=== PATIENT | male | born 1945 | race Caucasian/White ===

== ENCOUNTER 2018-06-05 09:24 | Inpatient (IN) | payer MEDICARE, OTHER ==
[~2018-06-05] VITALS: Ht 167.6 cm; Wt 92.1 kg
[2018-06-05] MEDS ORDERED: ALBUTEROL/IPRATROPIUM 3 ML NEB NEB ONE ×2 (10:00→12:45)
[2018-06-05] MEDS ORDERED: MAGNESIUM SULFATE 2GM/50ML 50 ML IV ONE (10:00)
[2018-06-05] MEDS ORDERED: DEXAMETHASONE SOD PHOS 10 MG/1 ML VIAL IV ONE (10:00)
[2018-06-05 10:14] LABS: BASOPHILS # (AUTO) 0.1 (0.0-0.1); BASOPHILS % 0.7 % (0.0-1.0); EOSINOPHILS # (AUTO) 0.8 (0.0-0.4); EOSINOPHILS % 7.9 % (0.0-6.0); HEMATOCRIT 45.1 % (38.2-49.6); HEMOGLOBIN 15.3 g/dL (14.0-18.0); LYMPHOCYTES # (AUTO) 1.7 (1.0-3.2); MEAN CORPUSCULAR HEMOGLOBIN 32.3 pg (28-32); MEAN CORPUSCULAR HGB CONC 33.9 g/dL (31-35); MEAN CORPUSCULAR VOLUME 95.1 fL (81-99); MONOCYTES # (AUTO) 0.9 (0.2-0.8); MONOCYTES % 8.3 % (4.4-11.3); NEUTROPHILS # (AUTO) 7.1 (2.1-6.9); NEUTROPHILS % 66.7 % (38.7-80.0); PLATELET COUNT 183 x10e3/uL (140-360); RED BLOOD COUNT 4.74 x10e6/uL (4.3-5.7); RED CELL DISTRIBUTION WIDTH 13.3 % (11.7-14.4)
[2018-06-05 10:26] LABS: ALANINE AMINOTRANSFERASE 10 IU/L (0-55); ALBUMIN 3.9 g/dL (3.5-5.0); ALBUMIN/GLOBULIN RATIO 1.2 (0.8-2.0); ALKALINE PHOSPHATASE 50 IU/L (40-150); ANION GAP 14.2 mmol/L (8-16); BLOOD UREA NITROGEN 13 mg/dL (7-26); BUN/CREATININE RATIO 12 (6-25); CALCIUM 9.1 mg/dL (8.4-10.2); CARBON DIOXIDE 27 mmol/L (22-29); CHLORIDE 97 mmol/L (98-107); CREATININE, SERUM 1.06 mg/dL (0.72-1.25); EST GLOMERULAR FILTRATION RATE > 60 ML/MIN (60-); GLUCOSE 96 mg/dL (74-118); POTASSIUM 4.2 mmol/L (3.5-5.1); SODIUM 134 mmol/L (136-145)
[2018-06-05] MEDS ORDERED: SODIUM CHLORIDE FLUSH 10 ML SYR INJ PRN (13:45)
[2018-06-05] MEDS ORDERED: ASPIRIN 81 MG CHEW TAB PO ONE (13:45)
[2018-06-05] MEDS ORDERED: METHYLPREDNISOLONE SOD SUCC 40 MG/ML VIAL IV SCH (14:00)
--- NOTE | 2018-06-05 15:02 | Diagnostic Imaging Report ---
EXAMINATION: CHEST 2 VIEWS INDICATION: Shortness of breath. COPD COMPARISON: April 30, 2012 FINDINGS: TUBES and LINES: None. LUNGS: Chronic appearing changes in the lungs with hyperinflation. Likely minimal scarring/atelectasis at the lung bases. There is no evidence of pneumonia or pulmonary edema. PLEURA: No pleural effusion or pneumothorax. HEART AND MEDIASTINUM: The cardiomediastinal silhouette is unremarkable. BONES AND SOFT TISSUES: No acute osseous lesion. Soft tissues are unremarkable. UPPER ABDOMEN: No free air under the diaphragm. IMPRESSION: Chronic appearing changes in the lungs with hyperinflation. Likely minimal scarring/atelectasis at the lung bases. Signed by: Dr. Rosas Ballard M.D. on 06/05/2018 2:58 PM
[2018-06-05] MEDS: ALBUTEROL/IPRATROPIUM 3 ML NEB NEB SCH ×3 (15:32→23:27)
[2018-06-05 15:56] VITALS: BP 149/69
[2018-06-05 16:00] VITALS: BP 149/69
[2018-06-05] MEDS ORDERED: VITAMIN D400 UNIT PO (16:58)
[2018-06-05] MEDS ORDERED: DIVALPROEX SOD500 M1 PO (16:58)
[2018-06-05] MEDS ORDERED: BUPROPION HCL150 M2 PO (16:58)
[2018-06-05] MEDS ORDERED: LEVOTHYROXINE50 MCG PO (17:21)
[2018-06-05] MEDS ORDERED: COLACE100 MG PO (17:21)
[2018-06-05] MEDS ORDERED: HYDROXYZINE HCL25 MG PO (17:21)
[2018-06-05] MEDS ORDERED: OMEPRAZOLE40 MG PO (17:25)
[2018-06-05] MEDS ORDERED: LORATADINE10 MG PO (17:25)
[2018-06-05] MEDS ORDERED: SPIRIVA18 MCG INH (17:27)
[2018-06-05] MEDS ORDERED: TAMSULOSIN HCL0.4 MG PO (17:27)
[2018-06-05] MEDS ORDERED: FLUTICASONE PRO16 GM (17:31)
[2018-06-05] MEDS ORDERED: ALBUTEROL0.63 MG/3 (17:34)
[2018-06-05] MEDS ORDERED: ALBUTEROL0.63 MG/3 INH (17:36)
[2018-06-05] MEDS ORDERED: SIMVASTATIN20 MG PO (17:37)
[2018-06-05] MEDS: FAMOTIDINE 20 MG/2 ML VIAL IV SCH (17:54)
[2018-06-05] MEDS: CEFTRIAXONE SOD 1 GM VIAL IV SCH (17:54)
[2018-06-05] MEDS: DOCUSATE SODIUM 100 MG CAP PO SCH (17:54)
[2018-06-05] MEDS: DOXYCYCLINE HYCLATE TABLET 100 MG TAB PO SCH (17:56)
[2018-06-05 18:13] LABS: FREE THYROXINE INDEX 2.5463 (1.4-3.8); THYROID STIMULATING HORMONE 16.319 uIU/mL (0.350-4.940)
[2018-06-05 18:20] LABS: CREATINE KINASE 273 IU/L (30-200)
--- NOTE | 2018-06-05 19:07 | Consultation ---
DATE OF CONSULTATION: HISTORY: A [facility] 72-year-old gentleman admitted with shortness of breath. He has been short of breath for 15 years, increasingly over the last month, recently seen at the [facility], told to increase his supplemental oxygen, which he has been using for 5 years, history of end-stage COPD. He had thyroid surgery in his youth, age 19, partial thyroidectomy, and he has been on replacement. 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 He smoked second hand smoker as a child and then for 15 years in the [employer], 3 packs a day. FAMILY HISTORY: Positive for congestive heart failure. PAST SURGICAL HISTORY: He had a ruptured appendix treated in 2003. PAST MEDICAL HISTORY: He has a history of dyspnea, gastroesophageal reflux, degenerative joint disease, seasonal allergies, and hyperlipidemia. PHYSICAL EXAMINATION VITAL SIGNS: Temperature 97, pulse 93, respirations 18, blood pressure 140/96. GENERAL: He appears somewhat cushingoid though he denies taking regular steroids. HEAD: Normocephalic and atraumatic. EYES: Extraocular movements are intact. LUNGS: Markedly diminished breath sounds. HEART: Regular rhythm. ABDOMEN: Nontender. EXTREMITIES: Nonedematous. IMPRESSION: Acute exacerbation of chronic obstruction pulmonary disease, hyperlipidemia, benign prostatic hypertrophy, iatrogenic hypothyroidism, and mild hyponatremia. PLAN: Optimize bronchodilators. Monitor the dose of corticosteroids, check blood gases. Check ultrasound and KUB. Job#: [id number] ABDOUL
--- NOTE | 2018-06-05 19:31 | Diagnostic Imaging Report ---
EXAM: Abdominal Aorta Ultrasound INDICATION: \S\AAA COMPARISON: None. TECHNIQUE: Grayscale, color Doppler, and spectral waveform analysis of the abdominal aorta and common iliac arteries was performed. FINDINGS: Diameter (AP x Transverse) Proximal Aorta: 2.7 x 1.8 cm Mid Aorta: 2.1 x 2.9 cm Distal Aorta: 2.3 x 1.9 cm Aneurysm: None Calcifications: Mild atherosclerotic calcification of distal aorta. Doppler flow: Normal Waveforms: Normal IMPRESSION: No abdominal aortic aneurysm identified. Mildly ectatic mid abdominal aorta. Signed by: Dr. Kwesi Cavanaugh MD on 06/05/2018 7:27 PM
[2018-06-05] MEDS: FLUTICASONE PROPIONATE NASAL SPRAY NS SCH (19:33)
[2018-06-05 19:55] VITALS: BP 114/60
[2018-06-05 20:05] VITALS: BP 114/60
--- NOTE | 2018-06-05 20:19 | Diagnostic Imaging Report ---
EXAM: Abdomen 1 View INDICATION: \S\CONSTIPATION \S\[id number] \S\1940 COMPARISON: None FINDINGS: Limited study due to body habitus. Nonobstructive bowel gas pattern. No definite evidence of pneumoperitoneum. Moderate colonic stool burden. Degenerative changes of lower lumbar spine. IMPRESSION: 1. Very limited study due to body habitus. 2. Nonobstructive bowel gas pattern. 3. Moderate colonic stool burden, could represent constipation. Signed by: Dr. Kwesi Cavanaugh MD on 06/05/2018 8:15 PM
[2018-06-05] MEDS: METHYLPREDNISOLONE SOD SUCC 40 MG/ML VIAL IV SCH (20:51)
[2018-06-05] MEDS: SIMVASTATIN 20 MG TAB PO SCH (20:51)
[2018-06-05] MEDS: DIVALPROEX SODIUM 250 MG TAB...DR PO SCH (20:51)
[2018-06-05] MEDS: TAMSULOSIN HCL 0.4 MG CAP PO SCH (20:51)
[2018-06-05] MEDS: HEPARIN SOD (PORCINE) 5,000 UNIT/ML VIAL SC SCH (20:54)
[2018-06-05] MEDS: MAGNESIUM HYDROXIDE 30 ML UDC PO PRN (21:26)
[2018-06-06] VITALS (8 sets, daily range): BP systolic 96–130; BP diastolic 55–68
[2018-06-06] MEDS: DOXYCYCLINE HYCLATE TABLET 100 MG TAB PO SCH ×3 (02:00→17:44)
[2018-06-06 02:27] LABS: CREATINE KINASE 266 IU/L (30-200)
[2018-06-06] MEDS: ALBUTEROL/IPRATROPIUM 3 ML NEB NEB SCH ×6 (03:22→23:00)
[2018-06-06 05:25] LABS: BASOPHILS % 0.1 % (0.0-1.0); HEMATOCRIT 39.6 % (38.2-49.6); HEMOGLOBIN 13.5 g/dL (14.0-18.0); LYMPHOCYTES # (AUTO) 0.6 (1.0-3.2); LYMPHOCYTES % 8.1 % (18.0-39.1); MEAN CORPUSCULAR HEMOGLOBIN 32.2 pg (28-32); MEAN CORPUSCULAR HGB CONC 34.1 g/dL (31-35); MEAN CORPUSCULAR VOLUME 94.5 fL (81-99); MONOCYTES # (AUTO) 0.3 (0.2-0.8); MONOCYTES % 4.3 % (4.4-11.3); NEUTROPHILS # (AUTO) 6.3 (2.1-6.9); NEUTROPHILS % 87.1 % (38.7-80.0); PLATELET COUNT 186 x10e3/uL (140-360); RED BLOOD COUNT 4.19 x10e6/uL (4.3-5.7); RED CELL DISTRIBUTION WIDTH 13.3 % (11.7-14.4)
[2018-06-06 05:44] LABS: CALCIUM 8.6 mg/dL (8.4-10.2); CREATININE, SERUM 1.21 mg/dL (0.72-1.25)
[2018-06-06] MEDS ORDERED: LEVOTHYROXINE SODIUM 100 MCG TAB PO SCH (06:00)
[2018-06-06] MEDS ORDERED: OMEPRAZOLE 20 MG CAP PO SCH (07:30)
--- NOTE | 2018-06-06 07:41 | Diagnostic Imaging Report ---
CHEST SINGLE (PORTABLE), 06/06/2018 7:00 AM Technique: CHEST SINGLE (PORTABLE) Comparison: Previous day Clinical history: Shortness of breath Findings: See Impression Impression: 1. Stable cardiomediastinal silhouette. 2. Hyperinflation/emphysema with mild bibasilar opacity, possibly atelectasis or aspiration/infection in the acute context or scarring in the chronic setting. Attention on short-term follow-up upright PA and lateral to better assess chronicity. 3. No effusion or pneumothorax. Signed by: Dr Shabana Smith MD on 06/06/2018 6:33 AM
[2018-06-06] MEDS: PANTOPRAZOLE SOD 40 MG TABEC PO SCH (08:47)
[2018-06-06] MEDS: DIVALPROEX SODIUM 250 MG TAB...DR PO SCH ×2 (08:47→20:41)
[2018-06-06] MEDS: DOCUSATE SODIUM 100 MG CAP PO SCH ×2 (08:47→17:43)
[2018-06-06] MEDS: FAMOTIDINE 20 MG/2 ML VIAL IV SCH ×2 (08:47→17:43)
[2018-06-06] MEDS: FLUTICASONE PROPIONATE NASAL SPRAY NS SCH ×2 (08:47→17:43)
[2018-06-06] MEDS: LORATADINE 10 MG TAB PO SCH (08:47)
[2018-06-06] MEDS: METHYLPREDNISOLONE SOD SUCC 40 MG/ML VIAL IV SCH (08:47)
[2018-06-06] MEDS: BUPROPION HCL 150 MG TABCR PO SCH (08:47)
[2018-06-06] MEDS: HEPARIN SOD (PORCINE) 5,000 UNIT/ML VIAL SC SCH ×2 (08:49→20:45)
[2018-06-06 10:00] LABS: CREATINE KINASE 309 IU/L (30-200)
[2018-06-06] MEDS: BUDESONIDE/FORMOTEROL 160/4.5MCG INHALER INH SCH ×2 (11:35→19:00)
[2018-06-06] MEDS: TIOTROPIUM 18 MCG INH POWDER INH SCH (11:35)
[2018-06-06] MEDS: CEFTRIAXONE SOD 1 GM VIAL IV SCH (17:43)
[2018-06-06] MEDS: TAMSULOSIN HCL 0.4 MG CAP PO SCH (20:41)
[2018-06-06] MEDS: SIMVASTATIN 20 MG TAB PO SCH (20:41)
[2018-06-07] VITALS (8 sets, daily range): BP systolic 123–152; BP diastolic 58–73
[2018-06-07] MEDS: ALBUTEROL/IPRATROPIUM 3 ML NEB NEB SCH ×7 (03:35→23:00)
[2018-06-07] MEDS: LEVOTHYROXINE SODIUM 100 MCG TAB PO SCH (05:58)
[2018-06-07] MEDS: DOXYCYCLINE HYCLATE TABLET 100 MG TAB PO SCH ×2 (05:58→17:22)
[2018-06-07] MEDS: BUDESONIDE/FORMOTEROL 160/4.5MCG INHALER INH SCH ×2 (07:00→19:00)
[2018-06-07] MEDS: METHYLPREDNISOLONE SOD SUCC 40 MG/ML VIAL IV SCH (07:55)
[2018-06-07] MEDS: PANTOPRAZOLE SOD 40 MG TABEC PO SCH (07:56)
[2018-06-07] MEDS: FAMOTIDINE 20 MG/2 ML VIAL IV SCH ×2 (08:13→17:01)
[2018-06-07] MEDS: DIVALPROEX SODIUM 250 MG TAB...DR PO SCH ×2 (08:13→20:27)
[2018-06-07] MEDS: DOCUSATE SODIUM 100 MG CAP PO SCH ×2 (08:13→17:01)
[2018-06-07] MEDS: BUPROPION HCL 150 MG TABCR PO SCH (08:13)
[2018-06-07] MEDS: LORATADINE 10 MG TAB PO SCH (08:13)
[2018-06-07] MEDS: FLUTICASONE PROPIONATE NASAL SPRAY NS SCH ×2 (08:13→17:01)
[2018-06-07] MEDS: HEPARIN SOD (PORCINE) 5,000 UNIT/ML VIAL SC SCH ×2 (08:47→20:30)
[2018-06-07] MEDS: TIOTROPIUM 18 MCG INH POWDER INH SCH (08:52)
[2018-06-07] MEDS: CEFTRIAXONE SOD 1 GM VIAL IV SCH (17:01)
[2018-06-07] MEDS: TAMSULOSIN HCL 0.4 MG CAP PO SCH (20:27)
[2018-06-07] MEDS: SIMVASTATIN 20 MG TAB PO SCH ×2 (20:27→21:00)
[2018-06-08 00:42] VITALS: BP 157/67
--- NOTE | 2018-06-08 00:47 | Consultation ---
DATE OF CONSULTATION: June 06, 2018 CARDIOLOGY CONSULT NOTE REASON FOR CONSULT: Elevated cardiac enzymes and chest pain. CHIEF COMPLAINT: Shortness of breath and wheezing. HISTORY OF PRESENT ILLNESS: Patient is a 72-year-old with history of COPD, on home oxygen, who presented with worsening shortness of breath for 2 weeks prior to admission with worsening cough, wheezing, and sputum production. Eventually, his dyspnea worsened to the point where he had to come to the hospital. His breathing is now better with treatment for his COPD; however, patient does endorse having had left-sided chest pain on exertion that feels like a dull ache in his chest for past several weeks. On presentation, his CK and CK-MB were noted to be elevated; however, troponin was negative. Does not have hypertension or diabetes; however, he is a former smoker with extensive smoking history, however, quit more than 20 years ago. Has family history of coronary artery disease as well in both mother and father related to smoking. PAST MEDICAL HISTORY 1. COPD. 2. Gastroesophageal reflux disease. 3. Degenerative joint disease. 4. Seasonal allergies. 5. Hyperlipidemia. FAMILY HISTORY: Mother had history of congestive heart failure and NC. Father history of aortic aneurysm. SOCIAL HISTORY: He is a . He used to smoke 3 packs a day for 15 to 20 years, quit about 20 to 25 years ago. Denies any alcohol or drug use. PHYSICAL EXAMINATION VITAL SIGNS: Temperature 97, pulse 93, respiratory rate 18, blood pressure 126/82, and satting 96% on 2 L nasal cannula. GENERAL: Elderly white man, no acute distress. CARDIOVASCULAR: Regular rate and rhythm. No murmurs, rubs, or gallops. PMI is nondisplaced. Palpable carotid pulses, palpable radial pulses, palpable pedal pulses. Varicosities around the ankle with trace ankle edema. No ulcers. LUNGS: Diminished breath sounds bilaterally with sporadic wheezing. ABDOMEN: Soft, nontender. Mildly distended. No masses. NEURO AND PSYCH: Alert and oriented to person, place, and time. Normal affect. INPATIENT MEDICATIONS: Reviewed. LABORATORY DATA: Reviewed, shows elevated CK and CK-MB with negative troponins. IMAGING DATA: Reviewed. TELEMETRY DATA: Reviewed, shows normal sinus rhythm. ASSESSMENT 1. Chronic obstructive pulmonary disease exacerbation. 2. Chest pain. 3. Abnormal CK and CK-MB. PLAN: Given his risk factors and age, recommend getting echo and a stress test to check for any coronary artery disease. Given elevated CK and CK-MB, would stop simvastatin. Troponins remain negative and no typical rise and fall in cardiac enzymes consistent with an acute NC. EKG was not suggestive of any acute ischemia as well. Further recommendations based on results of noninvasive testing. Thank you for this consult. Will continue to follow. Job#: [id number] CF
[2018-06-08] MEDS: ALBUTEROL/IPRATROPIUM 3 ML NEB NEB SCH ×4 (03:00→14:40)
[2018-06-08 04:00] VITALS: BP 129/62
[2018-06-08] MEDS: LEVOTHYROXINE SODIUM 100 MCG TAB PO SCH (05:18)
[2018-06-08] MEDS: DOXYCYCLINE HYCLATE TABLET 100 MG TAB PO SCH ×2 (05:21→16:50)
[2018-06-08] MEDS: TIOTROPIUM 18 MCG INH POWDER INH SCH (06:00)
[2018-06-08] MEDS: BUDESONIDE/FORMOTEROL 160/4.5MCG INHALER INH SCH (06:49)
[2018-06-08] MEDS: METHYLPREDNISOLONE SOD SUCC 40 MG/ML VIAL IV SCH (07:26)
[2018-06-08] MEDS: PANTOPRAZOLE SOD 40 MG TABEC PO SCH (07:30)
[2018-06-08 08:00] VITALS: BP 122/77
[2018-06-08] MEDS: LORATADINE 10 MG TAB PO SCH (08:19)
[2018-06-08] MEDS: FLUTICASONE PROPIONATE NASAL SPRAY NS SCH ×2 (08:19→16:50)
[2018-06-08] MEDS: FAMOTIDINE 20 MG/2 ML VIAL IV SCH ×2 (08:19→16:50)
[2018-06-08] MEDS: DOCUSATE SODIUM 100 MG CAP PO SCH ×2 (08:20→16:50)
[2018-06-08] MEDS: DIVALPROEX SODIUM 250 MG TAB...DR PO SCH (08:20)
[2018-06-08] MEDS: BUPROPION HCL 150 MG TABCR PO SCH (08:20)
[2018-06-08] MEDS: HEPARIN SOD (PORCINE) 5,000 UNIT/ML VIAL SC SCH (08:20)
[2018-06-08] MEDS ORDERED: REGADENOSON 0.4 MG/5 ML SYR IV ONE (10:38)
[2018-06-08 13:25] VITALS: BP 131/74
[2018-06-08] MEDS: MAGNESIUM HYDROXIDE 30 ML UDC PO PRN (14:29)
--- NOTE | 2018-06-08 14:48 | Progress Note ---
DATE: June 08, 2018 CARDIOLOGY PROGRESS NOTE SUBJECTIVE: The patient denies chest pain or shortness of breath. OBJECTIVE: VITAL SIGNS: Temperature 96.6 degrees, pulse 84, respiratory rate 20, blood pressure 122/77, oxygen saturation 94% on 2 L nasal cannula. GENERAL: Elderly man in no acute distress. Awake and alert. LUNGS: Clear to auscultation bilaterally. No wheezes or crackles. CARDIOVASCULAR: Normal rate, regular rhythm. No murmur. Normal S1 and S2. ABDOMEN: Soft. Nontender. EXTREMITIES: No edema. LABS: None today. IMPRESSION 1. Elevated creatine kinase and creatine kinase myocardial band. 2. Chronic obstructive pulmonary disease exacerbation. 3. Chest pain. RECOMMENDATIONS: Patient ruled out for myocardial infarction with serial negative troponin. Keep the patient off statin therapy given elevated CK and CK-MB. We will repeat labs today. Ischemic evaluation was warranted due to the patient's extensive smoking history. However, nuclear stress test was without evidence of ischemia. Continue risk factor modification. Treatment of COPD per primary. No further cardiac evaluation is indicated at this time. Thank you for this consult. We will continue to follow. Job#: [id number]
[2018-06-08 16:00] VITALS: BP 127/59
[2018-06-08] MEDS: CEFTRIAXONE SOD 1 GM VIAL IV SCH (16:50)
[2018-06-08 17:23] LABS: CREATINE KINASE MB 6.6 ng/mL (0-5.0)
[2018-06-08] MEDS ORDERED: DOXYCYCLINE HY100 MG PO (18:19)
[2018-06-08] MEDS ORDERED: PREDNISONE20 MG PO (18:19)
--- NOTE | 2018-06-08 18:20 | Discharge Summary ---
FINAL DIAGNOSES 1. Chronic obstructive pulmonary disease exacerbation. 2. Hypertension. 3. Hypothyroidism. 4. Abnormal CK-MB. ADMISSION HISTORY AND HOSPITAL COURSE: Mr. Cadena is a 72-year-old male who presented to the emergency room with complaints of shortness of breath, was diagnosed with COPD exacerbation, IV steroid was started. The patient's CK-MB was high, troponin was negative. Cardiology was consulted. Cardiology has cleared the patient to be discharged. The patient follows up at [facility]. He will follow up with [facility]. I will give him prednisone in tapering dose and doxycycline. DION VAIL MD Job#: [id number] GE
== END 2018-06-08 18:48 | disposition home or self-care (01) | DRG 191 ==
LOC: ER 09:24 → ERHOLD 14:02 → MED/SURG 14:33 → OBSVTOIN 06-07 12:10
PROVIDERS: ADMIT Internal Medicine; ATTEND Internal Medicine
DX: J44.1 Chronic obstructive pulmonary disease with (acute) exacerbation (principal); E87.1 Hypo-osmolality and hyponatremia; E78.5 Hyperlipidemia, unspecified; N40.0 Benign prostatic hyperplasia without lower urinary tract symptoms; E03.2 Hypothyroidism due to medicaments and other exogenous substances; K21.9 Gastro-esophageal reflux disease without esophagitis; R07.9 Chest pain, unspecified; R94.4 Abnormal results of kidney function studies; Z87.891 Personal history of nicotine dependence
CPT/HCPCS: 36415; 36600; 71045; 71046; 74018; 76770; 78452; 80048; 80053; 82550; 82553; 83880; 84436; 84443; 84479; 84484; 85025; 93017; 93306; 94640; 99284; A9502; G0378; J0696; J1100; J1644; J2920